=== PATIENT | female | born 1960 | race Caucasian/White ===

== ENCOUNTER 2018-03-31 08:49 | Day surgery (SDC) | payer OTHER ==
[~2018-03-31] VITALS: Ht 165.1 cm; Wt 85.3 kg
[~2018-03-31 08:49] MED LIST: CHANTIX1 MG PO; FOLIC ACID1 MG PO; HUMIRA40 MG/0.8 SUB-Q; LEVOTHYROXINE50 MCG PO; METHOTREXA25 MG/1 M3 INJ; PREDNISONE20 MG PO; TIZANIDINE HCL4 M1 PO; VENLAFAXINE HC150 MG PO; VITAMIN D-32000 UNIT PO
--- NOTE | 2018-03-31 11:35 | NUR ---
03/31/18 1135 Bianca Kaur 1130- PT ARRIVES TO PACU FROM ENDO ROOM ON 3 L VIA NC. PT TITRATED TO RA WITH SATS >90%. PT AWAKE AND ANSWERS QUESTIONS APPROPRIATELY. DENIES PAIN/NAUSEA. RESP EVEN AND UNLABORED. 1135 - VSS. PT SITTING UP IN BED AND DENIES PAIN/NAUSEA. PT ENC TO PAS S GAS AND IS ABLE TO DO SO. RA SATS 98%. RESP EVEN AND UNLABORED.
--- NOTE | 2018-04-02 14:13 | OR ---
[facility] [address] [place], [place] [address] Signed DATE OF OPERATION: 03/31/2018 SURGEON: Patrizia Damon MD PREOPERATIVE DIAGNOSES: 1. Epigastric pain and reflux symptoms. 2. Episodic diarrhea and constipation, prior history of tubular adenoma and hyperplastic polyp (2016). POSTOPERATIVE DIAGNOSES: 1. Distal esophagitis with ulceration. 2. Small flat polyp of distal esophagus. 3. Hiatal hernia. 4. Diminutive polyps of colon x2, otherwise normal. PROCEDURES: 1. Esophagogastroduodenoscopy with biopsy. 2. Total colonoscopy to cecum with cold morcellation polypectomy x2. ANESTHESIA: Intravenous sedation, fentanyl 150 mcg, and Versed 9 mg. INDICATION: This 57-year-old white woman is a patient of Mohsen Almodovar and has significant rheumatic disease, for which she takes Humira as well as methotrexate. She has clinical reflux symptoms which are rather significant, but takes no medication for that currently. Additionally, the patient is known to have colon polyps including a tubular adenoma and hyperplastic polyp in 2015, at which time she underwent colonoscopy and excision. She was admitted at this time to undergo upper endoscopy and colonoscopy. She understands the risks of bleeding, infection, and perforation. FINDINGS: On upper endoscopy, she had ulcerative distal esophagitis, but without stricture. There was also a small flat polyp in the distal 3rd of the esophagus, completely excised. The stomach itself looked reasonably normal. Pylorus was normal. Duodenum had no obvious findings. She did have a hiatal hernia upon retroflexed view. On colonoscopy, the prep was quite good. Complete colonoscopy was undertaken to the cecum and intubation of the ileum was accomplished as well. There was no sign of Electronically Signed By: PATRIZIA DAMON MD 04/02/18 1413 PATIENT NAME: LILLY TORRES OPERATIVE REPORT DATE OF : 58 REPORT #: [id number] PHYSICIAN: PATRIZIA DAMON MD PCP: MOHSEN ALMODOVAR DO REPORT IS CONFIDENTIAL AND NOT TO BE RELEASED WITHOUT AUTHORIZATION [facility] [address] [place], [place] [address] Signed colitis, but she did have 2 small polyps, both of diminutive and probably benign. There were no other findings of concern. DESCRIPTION OF PROCEDURE: The patient was brought to the endoscopy suite and given topical Hurricaine spray hypopharyngeal anesthesia and placed in lateral decubitus position. She was given intravenous sedation to the point of slurred speech and nystagmus. An Olympus video upper endoscope was passed by hypopharynx after placement of a bite block. Vocal cords appeared normal. Scope was advanced to the esophagus and distal esophagitis was noted. There was no stricture or neoplasm however. The scope was advanced to the stomach, which was insufflated with air. Rugal folds appeared normal. The antrum was reasonably normal as was the pylorus. The scope was passed into the duodenum without problem. The 3rd, 2nd, and bulbar portions were reasonably normal. Biopsies were taken of the duodenum to assess for occult celiac disease. The scope was withdrawn and biopsies taken of the antrum for both ED and pathologic testing. CLOtest was subsequently found to be negative at 1 hour's time. Retroflexed view of the GE junction showed a hiatal hernia. Scope was withdrawn to the distal esophagus where ulcerative esophagitis was noted. There is no clear evidence of Perales's epithelium proper however. Multiple biopsies were obtained. On withdrawal of scope in the distal one-third of the esophagus was a flat polyp. This was seen with narrow band imaging as slightly suspicious and therefore complete excision was undertaken with cold morcellation technique. The remaining esophagus was normal. Plans were then made for colonoscopy. The table was rotated and additional sedation given. Digital rectal examination performed and an Olympus video colonoscope passed in the rectum. The scope was manipulated throughout the colon ultimately intubating the cecum itself. The ileocecal valve appeared normal. Scope was easily passed into the terminal ileum. The ileum was normal. Scope was withdrawn and biopsies were not undertaken. With careful withdrawal of scope, there were no findings of concern until the sigmoid colon where a small hyperplastic appearing polyp was noted. This was excised with cold morcellation technique. Another similar such polyp was noted at the rectosigmoid also excised. Retroflexed view of the rectum was normal. Scope was removed and the patient was taken to recovery room in good condition. CONCLUDING DIAGNOSIS: Significant hiatal hernia with distal esophagitis, for which treatment is appropriate, particularly given her immunosuppression with Humira and methotrexate. I would recommend Prilosec 20 mg daily. As regards to colon, polyps were diminutive and of no real concern. Her bowel issues may be unrelated to a primary colonic pathology. She will follow up with me in 4-6 weeks and we will review her pathology reports and symptoms. Electronically Signed By: PATRIZIA DAMON MD 04/02/18 1413 PATIENT NAME: LILLY TORRES OPERATIVE REPORT DATE OF : 58 REPORT #: [id number] PHYSICIAN: PATRIZIA DAMON MD PCP: MOHSEN ALMODOVAR DO REPORT IS CONFIDENTIAL AND NOT TO BE RELEASED WITHOUT AUTHORIZATION [place] [address] Signed MD KIN Hoffman/MODL /[id number] cc: Mohsen Almodovar DO Copies: MOHSEN ALMODOVAR DO ~ Electronically Signed By: PATRIZIA DAMON MD 04/02/18 1413 PATIENT NAME: LILLY TORRES OPERATIVE REPORT DATE OF : 58 REPORT #: [id number] PHYSICIAN: PATRIZIA DAMON MD PCP: MOHSEN ALMODOVAR DO REPORT IS CONFIDENTIAL AND NOT TO BE RELEASED WITHOUT AUTHORIZATION
== END 2018-03-31 12:15 | disposition home or self-care (01) ==
LOC: OPS 08:49 → DS 08:49 → OPS 09:45 → DS 10:30 → OPS 12:15
PROVIDERS: Surgery
PROC: 0DB38ZX Excision of Lower Esophagus, Via Natural or Artificial Opening Endoscopic, Diagnostic (ICD-10-PCS; 2018-03-31)
PROC: 0DB58ZX Excision of Esophagus, Via Natural or Artificial Opening Endoscopic, Diagnostic (ICD-10-PCS; 2018-03-31)
PROC: 0DBN8ZZ Excision of Sigmoid Colon, Via Natural or Artificial Opening Endoscopic (ICD-10-PCS; 2018-03-31)
PROC: 0DB98ZX Excision of Duodenum, Via Natural or Artificial Opening Endoscopic, Diagnostic (ICD-10-PCS; principal; 2018-03-31 09:45)
PROC: 0DB78ZX Excision of Stomach, Pylorus, Via Natural or Artificial Opening Endoscopic, Diagnostic (ICD-10-PCS; 2018-03-31 09:45)
DX: K63.5 Polyp of colon (principal); K21.0 Gastro-esophageal reflux disease with esophagitis; K22.10 Ulcer of esophagus without bleeding; K22.8 Other specified diseases of esophagus; K44.9 Diaphragmatic hernia without obstruction or gangrene; M06.9 Rheumatoid arthritis, unspecified; M32.9 Systemic lupus erythematosus, unspecified; G47.30 Sleep apnea, unspecified; E03.9 Hypothyroidism, unspecified; J45.909 Unspecified asthma, uncomplicated; F32.9 Major depressive disorder, single episode, unspecified; Z88.8 Allergy status to other drugs, medicaments and biological substances; Z91.041 Radiographic dye allergy status; Z86.010 Personal history of colon polyps; Z87.891 Personal history of nicotine dependence; Z98.890 Other specified postprocedural states
CPT/HCPCS: 99153; G0500; J2250; J3010; J7120

== ENCOUNTER 2018-06-22 06:50 | Day surgery (SDC) | payer OTHER ==
[~2018-06-22] VITALS: Ht 165.1 cm; Wt 78.0 kg
--- NOTE | 2018-06-22 09:58 | NUR ---
06/22/18 0958 Vicky Dalton 0955 PT TO PACU SLEEPING ORAL AIRWAY IN PLACE O2 ON VIA MASK AT 7L.
[2018-06-22] MEDS ORDERED: IBUPROFEN600 MG PO (10:10)
[2018-06-22] MEDS ORDERED: OXYCODON-ACETA1 EAC2 PO (10:11)
[2018-06-22] MEDS ORDERED: TYLENOL325 MG PO (10:11)
--- NOTE | 2018-06-22 11:00 | NUR ---
PT RETURNS TO DS ROOM 3 ON RA. PT DROWSY BUT EASILY AROUSABLE. PT REPORTS TOLERABLE PAIN AND DENIES NAUSEA. 4 TROCH SITES WNL. SMALL AMOUNT OF DRAINAGE ON STERI-STRIPS. PT PROVIDED WITH ICE WATER. FAMILY AT BEDSIDE. PT REQUESTS PRESCRIPTION SO CAN FILL AT THIS TIME. PRESCRIPTION GIVEN TO . CALL LIGHT WITHIN REACH
--- NOTE | 2018-06-22 12:21 | NUR ---
1215: PATIENT REQUESTED SOMETHING FOR PAIN. VS CHECKED. GIVEN PUDDING TO START EATING. THEN MEDICATED FOR PAIN WITH 1 TAB OF PERCOCET. FAMILY AT BEDSIDE. CALL LIGHT WITHIN REACH.
--- NOTE | 2018-06-22 12:55 | NUR ---
VSS. PT MEETS DC CRITERIA. PT REQUESTS PAIN MEDICINE BEFORE LEAVING FOR 04/23 PAIN. TYLENOL GIVEN SEE EMAR. IV DC'D WNL.
--- NOTE | 2018-06-22 12:58 | NUR ---
PT UP TO BATHROOM TO VOID. TOLERATES AMBULATION. DENIES NAUSEA AND LIGHTHEADED NESS. PT REPORTS DECREASE IN PAIN LEVEL. PT VOIDS 400 ML CLEAR, YELLOW URINE W/OUT DIFFICULTY. PT BACK TO BED. MORE PUDDING AND WATER PROVIDED. CALLL IGHT WITHIN REACH
--- NOTE | 2018-06-22 13:08 | NUR ---
DC INSTRUCTIONS WITH PRECAUTIONS PROVIDED TO PT AND FAMILY. PT VERBALIZES UNDERSTANDING AND DENIES FURTHER QUESTIONS. PRESCRIPTION GIVEN TO EARLIER. PT TO REMAIN IN DS FOR 20 MIN FOLLOWING PAIN MEDICATION ADMINISTRATION. CALL LIGHT WITHIN REACH. FAMILY AT BEDSIDE.
--- NOTE | 2018-06-22 13:25 | NUR ---
PT REPORTS DECREASE IN PAIN LEVEL. SURGICAL SITES WNL. PT TRANSPORTED IN WHEELCHAIR TO VEHICLE DRIVEN BY . PT IN STABLE CONDITION
--- NOTE | 2018-06-23 06:50 | EKG ---
[facility] [address] [facility] [place], [place] [address] Signed Sinus bradycardia Otherwise normal ECG No previous ECGs available Confirmed by ALISE MUNOZ MD ([id number]) on 06/23/2018 6:50:21 AM Electronically Signed By: ALISE MUNOZ MD 06/23/18 0650 PATIENT NAME: LILLY TORRES Electrocardiogram DATE OF : 58 PHYSICIAN: ALISE MUNOZ MD REPORT #: [id number] REPORT IS CONFIDENTIAL AND NOT TO BE RELEASED WITHOUT AUTHORIZATION
--- NOTE | 2018-06-23 09:42 | OR ---
[facility] [address] [place], [place] [address] Signed DATE OF OPERATION: 06/22/2018 SURGEON: Patrizia Damon MD DATE OF PROCEDURE: 06/22/2018 PREOPERATIVE DIAGNOSIS: Chronic acalculous cholecystitis. POSTOPERATIVE DIAGNOSIS: Chronic acalculous cholecystitis. PROCEDURES PERFORMED: 1. Laparoscopic cholecystectomy with intraoperative cholangiogram. 2. Surgeon-directed fluoroscopy. ANESTHESIA: General endotracheal, Laura Canela CRNA, and local 10 mL of 0.25% Marcaine with epinephrine. INDICATION: This 57-year-old white woman is a patient of Dr. Almodovar. She has been evaluated by upper endoscopy and colonoscopy in March of 2018. She did have significant ulcerative esophagitis on upper endoscopy and has been appropriately treated with PPI medication. No symptoms of largely resolved. Colonoscopy was normal. She has had persistent right upper abdominal pain and a gallbladder ultrasound was performed on June 06, 2018 showing gallbladder sludge, but no sign of large stones or anything of that sort. Close review of her symptoms suggest her problem likely currently is related to chronic cholecystitis. Her symptoms are rather typical occurring after meals including right subcostal pain and radiation to the subscapular area. Given the sludge it was identified, a CCK-HIDA test was deemed inadvisable. She is here today to undergo cholecystectomy preferred by laparoscopic approach. The risks of bleeding, infection, bile duct injury, need for open procedure, and so forth were all reviewed. She understands and wished to proceed. Additionally, the patient is noted to have "anaphylaxis" with intravenous iodine contrast. The patient was treated with hydrocortisone and Benadryl anticipating a dilute brief intraoperative cholangiogram. FINDINGS: Electronically Signed By: PATRIZIA DAMON MD 06/23/18 0942 PATIENT NAME: LILLY TORRES OPERATIVE REPORT DATE OF : 58 REPORT #: [id number] PHYSICIAN: PATRIZIA DAMON MD PCP: MOHSEN ALMODOVAR DO REPORT IS CONFIDENTIAL AND NOT TO BE RELEASED WITHOUT AUTHORIZATION [facility] [address] [place], [place] [address] Signed The gallbladder was chronically inflamed. The liver was normal. There were no other findings of concern. The gallbladder once opened showed chronic inflammatory change of the mucosa. There was no sign of stones. Cholangiogram was normal. She tolerated the procedure well. DESCRIPTION OF PROCEDURE: The patient was brought to the operating room, given a general endotracheal anesthetic. Preoperative antibiotic Ancef was given. Sequential compression device stockings applied and heparin subcutaneously administered. Additionally, she was given hydrocortisone 100 mg IV as well as Benadryl 25 mg IV. The abdomen was prepared with a chlorhexidine solution and draped sterilely. An infraumbilical incision was made and using an open Brandie cannula technique, pneumoperitoneum was achieved to a level of 14 mmHg of carbon dioxide gas. Intraabdominal inspection showed no sign of ascites or carcinomatosis. Three additional trocars were placed in usual configuration in the subxiphoid, right midclavicular, and right anterior axillary line. The gallbladder was elevated cephalad, examined and looked to be chronically inflamed. The gallbladder was retracted laterally and using blunt and electrocautery dissection, the triangle of Calot was dissected free ultimately identifying well the cystic duct. A clip was applied across gallbladder cystic duct junction and a transverse choledochotomy made in the cystic duct. Egress of clear bile was noted. Using the Garza type cholangiocatheter, intraoperative cholangiography was undertaken with surgeon-directed fluoroscopy. Free flow of contrast was noted into the biliary tree with prompt emptying into the duodenum. A dilute solution was used and less than 2 mL were used in aggregate probably. The catheter was removed. The cystic duct was triply clipped and divided. The gallbladder dissected free in a retrograde fashion using electrocautery. The gallbladder was extracted through the infraumbilical port site without problem, opened on the back table and found to have chronic inflammatory change in the mucosa. No stones and no sign of neoplasm. Irrigation was undertaken in subhepatic space. Hemostasis was assured with electrocautery. Excess irrigation fluid was suctioned free. The trocars were removed under direct visualization. The infraumbilical fascial incision was reapproximated with interrupted 0 Vicryl suture. All wounds were copiously irrigated with saline solution. Skin closed with interrupted 3-0 Vicryl. Steri-Strips were applied. The patient was ultimately extubated and transferred to recovery room in good condition having suffered no complication. Sponge, needle, and instrument counts reported as correct x3. Patrizia Damon MD Electronically Signed By: PATRIZIA DAMON MD 06/23/18 0942 PATIENT NAME: LILLY TORRES OPERATIVE REPORT DATE OF : 58 REPORT #: [id number] PHYSICIAN: PATRIZIA DAMON MD PCP: MOHSEN ALMODOVAR DO REPORT IS CONFIDENTIAL AND NOT TO BE RELEASED WITHOUT AUTHORIZATION [address] [address] Signed /[facility] /[id number] cc: Mohsen Almodovar DO Copies: MOHSEN ALMODOVAR DO ~ Electronically Signed By: PATRIZIA DAMON MD 06/23/18 0942 PATIENT NAME: LILLY TORRES OPERATIVE REPORT DATE OF : 58 REPORT #: [id number] PHYSICIAN: PATRIZIA DAMON MD PCP: MOHSEN ALMODOVAR DO REPORT IS CONFIDENTIAL AND NOT TO BE RELEASED WITHOUT AUTHORIZATION
== END 2018-06-22 13:25 | disposition home or self-care (01) ==
LOC: DS 06:50
PROVIDERS: Surgery
PROC: BF13YZZ Fluoroscopy of Gallbladder and Bile Ducts using Other Contrast (ICD-10-PCS; 2018-06-22)
PROC: 0FT44ZZ Resection of Gallbladder, Percutaneous Endoscopic Approach (ICD-10-PCS; principal; 2018-06-22 08:15)
DX: K81.1 Chronic cholecystitis (principal); K21.9 Gastro-esophageal reflux disease without esophagitis; M19.90 Unspecified osteoarthritis, unspecified site; J45.909 Unspecified asthma, uncomplicated; E03.9 Hypothyroidism, unspecified; G47.30 Sleep apnea, unspecified; M32.9 Systemic lupus erythematosus, unspecified; F32.9 Major depressive disorder, single episode, unspecified; K22.10 Ulcer of esophagus without bleeding; K83.8 Other specified diseases of biliary tract; M06.9 Rheumatoid arthritis, unspecified; K21.0 Gastro-esophageal reflux disease with esophagitis; J18.9 Pneumonia, unspecified organism; I73.00 Raynaud's syndrome without gangrene; Z91.041 Radiographic dye allergy status; Z87.891 Personal history of nicotine dependence
CPT/HCPCS: 00790; 74300; 93005; 93010; J0131; J0330; J0690; J1100; J1200; J1644; J1720; J2250; J2405; J2704; J3010; J7120; Q9967

== ENCOUNTER 2018-12-22 19:31 | Observation (INO) | payer OTHER ==
[~2018-12-22] VITALS: Ht 165.1 cm; Wt 78.0 kg
[~2018-12-22 19:31] MED LIST changes: +IBUPROFEN600 MG PO; +OXYCODON-ACETA1 EAC2 PO; +TYLENOL325 MG PO
[2018-12-22] MEDS ORDERED: LYRICA50 MG PO (19:51)
[2018-12-22] MEDS ORDERED: CITALOPRAM HBR10 MG PO (19:52)
[2018-12-22] MEDS ORDERED: LEUCOVORIN CALCI5 MG PO (23:57)
[2018-12-22] MEDS ORDERED: OMEPRAZOLE20 MG PO (23:59)
--- NOTE | 2018-12-23 00:28 | NUR ---
SBA PT TO BR AND BK TO BED
--- NOTE | 2018-12-23 00:45 | NUR ---
PT UP TO USE THE BATHROOM WITH SENIOR SOFTWARE QA ENGINEER ASSIST AND FWW. PT REQUESTING PRN PAIN MEDICATION AFTER RETURNING TO BED. PT RATES PAIN 7/10 TO RLQ. PRN DILAUDID ADMINSITERED, EDUCATION REGARDING SIDE EFFECTS AND MEDICATION AVAILABILITY DISCUSSED. PT STATES UNDERSTANDING. PT DENIES FURTHER NEEDS AT THIS TIME. PT'S MOM REMAINS AT BEDSIDE. CALL LIGHT IN REACH.
--- NOTE | 2018-12-23 03:55 | NUR ---
PT UTILIZES CALL LIGHT, REQUESTS PRN PAIN MEDCIATION. RATES PAIN 7/10. PT STATES THAT SHE JUST PASSED A LARGE AMOUNT OF FLATUS WHICH HAS INCREASED HER PAIN. PT UP TO THE BATHROOM AND BACK TO BED WITH 1PA AND FWW. PT TOLERATED WELL. PT ASSESSMENT COMPLETE. BT'S ACTIVE. ABD TENDER TO PALPATION. PT DENIES FURTHER NEEDS AT THIS TIME. PT'S MOM SLEEPING AT BEDSIDE. CALL LIGHT IN REACH.
--- NOTE | 2018-12-23 07:22 | NUR ---
PATIENT GIVEN 0.5MG IV DILUADID FOR RLQ PAIN OF 5/10.
--- NOTE | 2018-12-23 07:40 | NUR ---
0733: BEDSIDE REPORT RECIEVED FROM ERA SANABRIA. PT RESTING IN HER BED AND STATES HER PAIN IS A BIT "BETTER" AFTER HER LAST DOSE OF PAIN MEDICATIONS. PT DENIES ANY OTHER PROBLEMS AT THIS TIME. CALL LIGHT WITHIN REACH.
--- NOTE | 2018-12-23 08:23 | NUR ---
PT RESTING IN HER BED WITH NO COMPLAINTS OTHER THAN HER ABD PAIN AT A 4-5 WHICH SHE STATES IS ACCEPTABLE TO HER AT THIS TIME. PT REMAINS NPO, IV INFUSING ORDERED. CALL GUTIERREZ WITHIN REACH.
--- NOTE | 2018-12-23 09:50 | NUR ---
PRE-OP EKG DONE, PATIENT DOING PRE-OP WIPES
--- NOTE | 2018-12-23 10:02 | NUR ---
PATIENT TO SURGERY WITH KUSH SANABRIA
--- NOTE | 2018-12-23 10:07 | NUR ---
PT TO OR AT 1145.
--- NOTE | 2018-12-23 11:48 | NUR ---
12/23/18 Jessica Valdes OXYGEN SATURATION REMAINS 100% ON 6L VIA MASK. OXYGEN IS REMOVED AT THIS TIME. PATIENT LIFTS HER HEAD OFF THE PILLOW AND SURGICAL BONNET IS REMOVED.
--- NOTE | 2018-12-23 12:46 | EKG ---
[facility] [address] [facility] [place], [place] [address] Signed Normal sinus rhythm Nonspecific T wave abnormality Abnormal ECG When compared with ECG of 22-JUN-2018 07:40, No significant change was found Confirmed by ALISE MUNOZ MD ([id number]) on 12/23/2018 12:46:00 PM Electronically Signed By: ALISE MUNOZ MD 12/23/18 1246 PATIENT NAME: LILLY TORRES Electrocardiogram DATE OF : 58 PHYSICIAN: ALISE MUNOZ MD REPORT #: [id number] REPORT IS CONFIDENTIAL AND NOT TO BE RELEASED WITHOUT AUTHORIZATION
--- NOTE | 2018-12-23 12:49 | NUR ---
PATIENT ARRIVES TO UNIT VIA HOSPITAL BED. REPORT RECEIVED FROM ELECTRICAL TIMING DEVICE CALIBRATOR. ABDOMINAL LAP SITES ARE CLEAN, DRY, AND INTACT. HYPOACTIVE BOWEL TONES. SPO2 OF 95% ON 2LNC. PATIENT REPORTS PAIN OF 2/10, WHICH IS TOLERABLE. PATIENT ORIENTED TO ROOM, COFFEE BROUGHT IN. PLAN OF CARE FOR THE DAY IS DISCUSSED. NO FURTHER NEEDS AT THIS TIME, CALL LIGHT WITHIN REACH.
--- NOTE | 2018-12-23 14:25 | NUR ---
PATIENT SITTING UP IN BED WATCHING TV. DENIES NAUSEA, HAS NOT PASSED GAS. ABDOMINAL LAP SITES ARE CLEAN, DRY, AND INTACT. BOWEL TONES HYPOACTIVE. PATIENT REPORTS PAIN OF 3/10 AFTER AMBULATING TO THE TOILET. COFFEE PROVIDED. DENIES FURTHER NEEDS AT THIS TIME, CALL LIGHT WITHIN REACH.
--- NOTE | 2018-12-23 15:22 | NUR ---
PATIENT GIVEN 1 NORCO FOR 4/10 ABD PAIN, ICE PACK GIVEN, LAST POST OP VITALS DONE.
--- NOTE | 2018-12-23 15:45 | NUR ---
DR. WALLACE NOTIFIED OF PATIENT REQUEST TO NOT TAKE IBUPROFEN DUE TO HOME MEDICATIONS. NEW ORDERS RECEIVED FOR PRN ACETAMINOPHEN.
--- NOTE | 2018-12-23 19:20 | NUR ---
BEDSIDE REPORT RECEIVED FROM OFFGOING RN'S AVERY. PT ABLE TO PARTICIPATE IN REPORT. DENIES NEEDS AT THIS TIME. CALL LIGHT WITHIN REACH. PT'S MOM PRESENT AT BEDSIDE WITH PT.
--- NOTE | 2018-12-23 21:50 | NUR ---
PT ASSESSMENT COMPLETE. PT RATES PAIN 5/10 TO RLQ. PRN NORCO X 2 TABS ADMINISTERED. PT DENIES NAUSEA OR SOB AT THIS TIME. BT'S ACTIVE. ABD TENDER TO PALPATION. PT REPORTS PASSING FLATUS, REPORTS THAT THIS HELPS ALLEVIATE SOME PAIN. LAP SITES X3, UMBILICAL LAP SITE AND LAP SITE BELOW UMBILICUS WITH SMALL AMOUNT OF RED SHADOWING TO GAUZE. PT DENIES FURTHER NEEDS AT THIS TIME. CALL LIGHT IN REACH.
--- NOTE | 2018-12-23 22:03 | OR ---
[facility] [address] [place], [place] [address] Signed DATE OF OPERATION: 12/23/2018 SURGEON: Lupe Wallace MD PREOPERATIVE DIAGNOSES: 1. Appendicitis. 2. Immunocompromised patient. POSTOPERATIVE DIAGNOSES: 1. Inflamed appendicitis. 2. Immunocompromised patient. PROCEDURE PERFORMED: Laparoscopic appendectomy. ESTIMATED BLOOD LOSS: None. INDICATIONS: Lilly is a 58-year-old female, who happens to have lupus, rheumatoid arthritis, and fibromyalgia requiring Humira and methotrexate. She has had some generalized abdominal pain actually for several months. However, she developed generalized abdominal pain that seemed to be localized to the right lower quadrant. Her went through a rather significant appendicitis number of years ago. He had been in the hospital for 9 days requiring an open incision. Obviously, they were quite concerned, so they came to the emergency room for evaluation. Her vital signs were stable, but she certainly was tender in the right lower quadrant. White count is not necessarily dependable given her medications. She came with a white count of 6.5 and this morning it was 4.4 with neutrophils of 70 that dropped to 59. Her platelet count runs a little bit on the low side at 123. She also has some chronic anemia. Liver function tests were fine. Albumin is good at 4.0. Urinalysis was negative. The CT scan showed what looked like a thickened appendiceal tip and maybe some mild periappendiceal inflammation. Consequently, I have been called in the middle of night and asked her to admit her as a general surgeon on-call. When I met Lilly this morning, she was clearly tender in the right lower quadrant, somewhat laterally exactly over the area of her appendix consistent with the CT scan. I reviewed this with Lilly and her in detail. We had reviewed laparoscopic versus open appendectomy. We did review the risks including, but not limited to bleeding, infection, scarring, change in contour of the skin, damage to bowel, appendiceal stump leak, postoperative intraabdominal abscess, incisional hernias, and other unforeseen comorbidities. We all agreed it was prudent to Electronically Signed By: LUPE WALLACE MD 12/23/18 2203 PATIENT NAME: LILLY TORRES OPERATIVE REPORT DATE OF : 58 REPORT #: [id number] PHYSICIAN: LUPE WALLACE MD PCP: MANI ALMODOVAR DO REPORT IS CONFIDENTIAL AND NOT TO BE RELEASED WITHOUT AUTHORIZATION [facility] [address] [place] [id number] Signed proceed with a laparoscopic appendectomy for Lilly. She had expressed understanding and wished to proceed. PROCEDURE NOTE: Lilly was taken in the operating room and placed in the supine position under general endotracheal tube anesthesia. She was given preoperative antibiotics along with subcutaneous heparin. SCDs were utilized. She was then prepped and draped in the usual sterile fashion. A Rea catheter had been inserted with return of clear yellow urine without difficulty. Her trocars were placed in her usual positions under direct visualization of camera without difficulty. We took multiple pictures for photodocumentation. We could see the right ovary and it looked fine. We elevated the small bowel off the appendix and sure enough she had a thickened inflamed appendix. After this, the base of the appendix was divided from the cecum with help of a linear stapler. The mesoappendix was also divided with the stapler. Gentle cautery was used for hemostasis along each staple line. The appendix was then placed into an EndoCatch bag. We did see some reactive fluid around the cecum and it was irrigated and suctioned out. The appendix was removed through the right subcostal trocar site. We used our laparoscopic suturing device to pass 2-0 Vicryl sutures through the fascia of the right subcostal trocar site. This was tied down to close this fascia primarily. After this, all the gas was allowed to escape and all the remaining trocars were removed. We closed the fascia of the supraumbilical trocar site with interrupted [id number] and simple 0 Vicryl sutures. Local anesthetic was injected into all trocar sites. Each trocar site was irrigated and suctioned out until clear. The skin and dermis of each trocar site were closed with interrupted 3-0 subcuticular Monocryl sutures. Dry gauze and tape were then applied to all incisions. Lilly Rea catheter was then removed without difficulty. She was awakened from anesthesia, extubated in the OR, and taken to recovery room in stable condition. Lupe Wallace MD ALB/MODL /[id number] cc: DO Luna Evans MD Electronically Signed By: LPUE WALLACE MD 12/23/18 2203 PATIENT NAME: LILLY TORRES OPERATIVE REPORT DATE OF : 58 REPORT #: [id number] PHYSICIAN: LUPE WALLACE MD PCP: MANI ALMODOVAR DO REPORT IS CONFIDENTIAL AND NOT TO BE RELEASED WITHOUT AUTHORIZATION [facility] [address] [place] [address] Signed Lupe Wallace MD Copies: MANI ALMODOVAR LESLIE MD BOWER, ANDREW L MD ~ Electronically Signed By: LUPE WALLACE MD 12/23/18 2203 PATIENT NAME: LILLY TORRES OPERATIVE REPORT DATE OF : 58 REPORT #: [id number] PHYSICIAN: LUPE WALLACE MD PCP: MANI ALMODOVAR DO REPORT IS CONFIDENTIAL AND NOT TO BE RELEASED WITHOUT AUTHORIZATION
--- NOTE | 2018-12-23 22:03 | CONS ---
[facility] [address], [place] [address] Signed DATE OF CONSULTATION: 12/23/2018 CHIEF COMPLAINT: Right lower quadrant abdominal pain. HISTORY OF PRESENT ILLNESS: Lilly is a 58-year-old female with a history of lupus, rheumatoid arthritis and fibromyalgia on methotrexate and Humira. She has had some trouble with generalized abdominal pain probably the last 6 months. She was started on Lyrica and it caused constipation, seemed to make things worse. She finally had some gas and bowel movement and abdominal distention resolved. However, she noticed that she had persistent pain in the right lower quadrant. Her had been through rather significant an open appendectomy previously. Consequently, they brought her to the emergency room for evaluation. In the emergency room, she was tender in the right lower quadrant with a normal white count. The CT scan showed possible thickening and periappendiceal inflammation near the tip of the appendix. I was asked to admit her as a general surgeon aqua ammonia operator last night. Overnight she has done fine, although the pain has persisted. PAST MEDICAL HISTORY: Depression, hypothyroidism, lupus, rheumatoid arthritis and fibromyalgia. PAST SURGICAL HISTORY: A laparoscopic cholecystectomy, partial hysterectomy, upper endoscopy with foreign body removal, x2. SOCIAL HISTORY: She quit smoking. She does not drink. She is to her at [phone]. 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 They prefer the [facility], Dr. Mohsen Almodovar is her primary care provider, Dr. Luna Clifton is her Intelligence Consultant over in [place], [place]. She has three children. FAMILY HISTORY: Dad of testicular cancer. REVIEW OF SYSTEMS: She had 10 systems reviewed and we talked mainly about her lupus and rheumatoid arthritis. ALLERGIES: Iodine and bupropion. Electronically Signed By: LUPE WALLACE MD 12/23/18 2207 PATIENT NAME: LILLY TORRES CONSULTATION DATE OF : 58 REPORT #: [id number] PHYSICIAN: LUPE WALLACE MD PCP: MOHSEN ALMODOVAR DO REPORT IS CONFIDENTIAL AND NOT TO BE RELEASED WITHOUT AUTHORIZATION [facility] [address], [place] [address] Signed MEDICATIONS: Lyrica, ibuprofen, Tylenol, levothyroxine, folate, vitamin D, citalopram, Humira, and methotrexate. PHYSICAL EXAMINATION: VITAL SIGNS: Her blood pressure is 91/45, heart rate 66, respiratory rate 16, temperature is 99.1. She is 91-98 percent on room air. She is 5 feet 5 inches and 78 kg. GENERAL: Lilly is a 58-year-old female, lying supine in her hospital bed. She does not appear systemically ill or toxic. As always, she is a good historian. LUNGS: Clear to auscultation bilaterally. HEART: Regular rate and rhythm. ABDOMEN: Obese, but soft. She is tender in the right lower quadrant and somewhat laterally.. LABORATORY DATA: Her white blood count is 4.4 with neutrophils of 59. Her hemoglobin is 11.6 with a mean cell volume of 100, platelets are 123. BUN 15, creatinine 0.97. Liver function tests are negative. Albumin is 4.0, lipase 25. Urinalysis is negative. RADIOGRAPHIC STUDIES: The CT scan report and images are reviewed. There was concern about 1.1 cm appendiceal tip with some mild periappendiceal inflammation at the tip concerning for possible early appendicitis. ASSESSMENT AND PLAN: Lilly is a 58-year-old female, who presents with very well may be early appendicitis. She is immunocompromised as stated above. I think the Lyrica and constipation are separate issue. In addition, this could be viral given her white blood cell count. Nevertheless, I think it is nova given her immunocompromised state and ongoing need for her Humira and methotrexate to go ahead and remove her appendix. She has already been through a laparoscopic cholecystectomy and she is familiar with that process. Her went through a laparoscopic, converted to an open appendectomy with myself in the last few years. They are very familiar with this whole process. They understand there is risk including, but not limited to bleeding, infection, scarring, change in contour of the skin, damage to bowel, appendiceal stump leak, postoperative intraabdominal abscess, incisional hernias and other unforeseen comorbidities. They have expressed understanding and wished to proceed. Lupe Wallace MD Electronically Signed By: LUPE WALLACE MD 12/23/18 9686 PATIENT NAME: LILLY TORRES CONSULTATION DATE OF : 58 REPORT #: [id number] PHYSICIAN: LUPE WALLACE MD PCP: MOHSEN ALMODOVAR DO REPORT IS CONFIDENTIAL AND NOT TO BE RELEASED WITHOUT AUTHORIZATION [address] [address] Signed ALB/MODL /[id number] cc: MD Luna Ortega MD Arian Kargar, DO Copies: LUPE WALLACE MD, LESLIE MD KARGAR, ARIAN DO ~ Electronically Signed By: LUPE WALLACE MD 12/23/18 2203 PATIENT NAME: LILLY TORRES CONSULTATION DATE OF : 58 REPORT #: [id number] PHYSICIAN: LUPE WALLACE MD PCP: MOHSEN ALMODOVAR DO REPORT IS CONFIDENTIAL AND NOT TO BE RELEASED WITHOUT AUTHORIZATION
--- NOTE | 2018-12-23 23:45 | NUR ---
BROODMARE FOREMAN TO ROOM FOR IV ALARMING. PT REPORTS THAT HAT IN TOILET NEEDS EMPTIED. BROODMARE FOREMAN INQUIRES HOW PT GOT UP. SHE STATES WITH HER MOTHER'S HELP. PT'S MOTHER IS ELDERLY AND WALKS WITH A CANE. PT ADVISED THAT THIS IS NOT A SAFE OPTION, THAT PT SHOULD CALL FOR ASSISTANCE. PT'S MOM STATES "BUT SHE HAS URINARY URGENCY". PT AND HER MOTHER ADVISED THAT REGARDLESS OF URINARY URGENCY, PT NEEDS TO CALL STAFF FOR ASSISTANCE OR WE WOULD HAVE OT PLACE THE BED ALARM. PT AND HER MOTHER STATE UNDERSTANDING. DENY FURTHER NEEDS AT THIS TIME. CALL LIGHT WITHIN REACH.
--- NOTE | 2018-12-24 02:15 | NUR ---
SBA PT TO TOILET, BK TO BED
--- NOTE | 2018-12-24 02:35 | NUR ---
DIRECTOR MARKETING INFORMS THIS AGRICULTURAL EQUIPMENT SALES MANAGER THAT PT WOULD LIKE PRN PAIN MEDICATION. PT MEDICATED WITH PRN NORCO BY POOL TABLE MECHANIC.
--- NOTE | 2018-12-24 05:52 | NUR ---
SBA PT TO TOILET AND BK TO BED
--- NOTE | 2018-12-24 06:01 | NUR ---
ROOF SLATER TO ROOM FOR SCHEDULED MEDCIATION ADMINISTRATION. PT WAKES EASILY. PT STATES THAT PAIN IS WELL CONTROLLED AFTER RECENT DOSE OF PRN PAIN MEDCIATION. PT DENIES NAUSEA OR SOB. PT ASSESSMENT COMPLETE. BT'S ACTIVE, ABD TENDER TO PALPATION, SPECIFICALLY RLQ PER PT. LAP SITES X 3 WITH GAUZE AND SILK TAPE. SMALL AMOUNT OF RED SHADOWING TO EACH. ICE WATER REFILLED, VITAL SIGNS TAKEN. PT UP TO BATHROOM WITH HEAD BELLHOP CAPTAIN ASSISTANCE. DENIES FURTHER NEEDS FROM THIS ROOF SLATER. CALL LIGHT IN REACH.
--- NOTE | 2018-12-24 06:57 | NUR ---
VITALS/I&Os DONE, SBA TO BSC, BK TO BED
--- NOTE | 2018-12-24 07:13 | NUR ---
PATIENT SITTING UP IN BED WITH MOTHER AT BEDSIDE. REPORTS PAIN OF 5/10, PRN PAIN MEDICATION PROVIDED. WATER REFRESHED. PATIENTS CHEEKS ARE FLUSHED AND REPORTS FEELING "HOT," TEMP IS TAKEN OF 98.1 DEGREES. D5LR RUNNING AT 100 MLS/HR. IV SITE BENIGN. NO FURTHER NEEDS AT THIS TIME, CALL LIGHT WITHIN REACH.
--- NOTE | 2018-12-24 08:57 | NUR ---
PATIENT SITTING UP AT EDGE OF BED WITH FEET ON FLOOR. MOTHER AT BEDSIDE. D5LR INFUSING AT 100 MLS/HR. AM MEDICATIONS GIVEN, TOLERATED WELL. ASSESSMENT COMPLETE. ACTIVE BOWEL TONES, NO TENDERNESS ON PALPATION. SHADOWING PRESENT ON ABDOMINAL LAP SITE NEAR UMBILICUS AND RIGHT ABDOMINAL LAP SITE. INGUINAL LAP SITE IS CLEAN, DRY, AND INTACT. WATER REFRESHED, DENIES FURTHER NEEDS AT THIS TIME. CALL LIGHT WITHIN REACH.
--- NOTE | 2018-12-24 10:32 | NUR ---
PATIENT AMBULATING HALLWAYS WITH . IV FLUIDS CONTINUING TO INFUSE. DENIES PAIN OR NAUSEA WITH AMBULATION.
--- NOTE | 2018-12-24 10:55 | NUR ---
NEW BAG OF D5LR HUNG, RATE CHANGE TO 50 MLS/HR. CITALOPRAM DOSE CHANGED TO MORNINGS, DOSE GIVEN. PATIENT AMBULATED TO TOILET WITH 1 PERSON SBA, VOIDING WELL. RETURNED TO BED, WATER REFRESHED. NO FURTHER NEEDS AT THIS TIME, CALL LIGHT WITHIN REACH.
--- NOTE | 2018-12-24 12:43 | NUR ---
PATIENT SITTING UP IN BED WATCHING TV. IN ROOM. ATE 100% OF LUNCH, DENIES PAIN OR NAUSEA AFTER EATING. VOID OF 325 MLS. NO FURTHER NEEDS AT THIS TIME, CALL LIGHT WITHIN REACH.
--- NOTE | 2018-12-24 14:32 | NUR ---
PATIENT SITTING UP IN BED. IV FLUIDS RUNNING AT 50 MLS/HR. ASSESSMENT COMPLETE. BOWEL TONES ACTIVE, INCISIONS ARE WELL APPROXIMATED WITH NO DRAINAGE. PATIENT DENIES PAIN, NO FURTHER NEEDS AT THIS TIME, CALL LIGHT WITHIN REACH.
--- NOTE | 2018-12-24 16:15 | NUR ---
PATIENT REPORTS PAIN OF 4/10, PRN PAIN MEDICATION GIVEN. D5LR CONTINUES RUNNING AT 50 MLS/HR. PATIENT SITTING UP IN BED, DENIES ANY FURTHER NEEDS AT THIS TIME. CALL LIGHT WITHIN REACH.
--- NOTE | 2018-12-24 19:20 | NUR ---
REPORT RECEIVED FROM DANIELE DOMINGUEZ. pt RESTING IN BED. REPORTED PAIN "IT'S OKAY RIGHT NOW." LAP SITES OBSERVED, EDGES APPROXIMATED. NO REQUESTS AT THIS TIME. MOTHER, JOSE, AT BEDSIDE. CALL LIGHT WITHIN REACH.
--- NOTE | 2018-12-24 20:47 | NUR ---
DR WALLACE CALLED. OKAY TO LEAVE IV OUT.
--- NOTE | 2018-12-24 20:47 | NUR ---
PT COMPLAINED OF IV HURTING, FOUND TO BE INFILTRATED. ORDER TO DC RECEIVED. IV DC'D
--- NOTE | 2018-12-24 22:00 | NUR ---
ASSESSMENT DONE. LAP SITES X3, EDGES APPROXIMATED. VITALS AND I&O RECORDED. PRN PAIN MED GIVEN (SEE MAR). NO FURTHER REQUESTS AT THIS TIME. CALL LIGHT WITHIN REACH.
--- NOTE | 2018-12-25 00:27 | NUR ---
PT APPEARS TO BE SLEEPING, RESP EVEN AND NON LABORED. NO DISTRESS NOTED. PERSONAL SUPPLIES AND CALL LIGHT WITHIN REACH.
--- NOTE | 2018-12-25 02:59 | NUR ---
TWO TABS OF [place] ADMIN FOR REPORTS OF 6/10 ABD PAIN.
--- NOTE | 2018-12-25 07:27 | NUR ---
RECIEVED BEDSIDE REPORT FROM DANIELE REESE. PT IS AWAKE AND ALERT, DRESSED AND READY FOR DISCHARGE. DR WALLACE HAS WRITTEN DC ORDERS FOR AFTER BREAKFAST. SHE HAS BREAKFAST ORDERED.
[2018-12-25] MEDS ORDERED: NORCO 5-325 TA1 EACH PO (08:11)
--- NOTE | 2018-12-25 09:49 | NUR ---
PT DISCHARGED HOME WITH MOTHER. RN WALKED PT OUT IN WHEELCHAIR. DISCHARGE TEACHING COMPLETE. DISCUSSED FOLLOW UP, MEDICATIONS, WHEN TO TO CALL THE DOCTOR, ACTIVITY. PT VERBALIZED UNDERSTANDING. PT REQUESTED ONE NORCO TABLET PRIOR TO DISCHARGE.
--- NOTE | 2018-12-26 05:18 | DS ---
[facility] [address], [place] [address] Signed ADMISSION DATE: 12/22/2018 DISCHARGE DATE: 12/25/2018 FINAL DIAGNOSIS: Acute inflamed appendicitis. PROCEDURE: Laparoscopic appendectomy. HISTORY OF PRESENT ILLNESS: Lilly is a 58-year-old female with a known history of lupus, rheumatoid arthritis and fibromyalgia, requiring Humira and methotrexate. She has had various abdominal pains for six months. However, she developed right lower quadrant abdominal pain the day prior to admission. She came to emergency room for evaluation. White count was normal on her immunosuppressive medications. However, she was mildly tender in the right lower quadrant. A CT scan showed what might be some thickening and periappendiceal inflammation. Consequently, I was asked to admit her as a general surgeon on-call. HOSPITAL COURSE: Lilly was admitted as above, started on antibiotics. We took her to surgery that same day and sure enough she had an inflamed and thickened early appendicitis. She underwent uncomplicated laparoscopic appendectomy. The intra and postop course had been uncomplicated. At this point, she is doing quite well with her full liquid diet. She is ambulating and getting around nicely. All incisions are healing well. There are no local signs or symptoms of infection. She is using a little narcotics for the incisional pain. Due to her progressing, we are going to be discharging her to home. DISCHARGE PLANS AND MEDICATIONS: Lilly will be discharged to home with a prescription for [place] 5/325 1-2 tablets p.o. q.6 hours p.r.n. for severe postoperative pain. We will dispense 30 tablets with no refills. Otherwise, she can use Tylenol, ibuprofen or naproxen as needed for nahl-js-udoylobx postoperative pain. She can purchase that vamm-cxm-wbwyzvk. She can resume all her chronic medications as we have here in the hospital including the Humira and the methotrexate. She can purchase an enym-fnu-bnytefo laxative such as Dulcolax or MiraLAX as needed for constipation. She will follow a regular diet. She is not to do any heavy pushing, pulling, or lifting over 20 pounds. She is not to return to work until I see her in the office in 7 to 10 days for re-evaluation. She has expressed understanding and agrees above plan. Electronically Signed By: LUPE WALLACE MD 12/26/18 0518 PATIENT NAME: LILLY TORRES DISCHARGE SUMMARY DATE OF : 58 REPORT #: [id number] PHYSICIAN: LUPE WALLACE MD PCP: MANI ALMODOVAR DO REPORT IS CONFIDENTIAL AND NOT TO BE RELEASED WITHOUT AUTHORIZATION [facility] [address] [place] [id number] Signed MD JIM Ortega/IFRAH /[id number] cc: MD Lupe Madsen MD Arian Kargar, DO Copies: BRIANA ARAUJO MD, ANDREW L MD KARGAR, ARIAN DO ~ Electronically Signed By: LUPE WALLACE MD 12/26/18 0518 PATIENT NAME: LILLY TORRES DISCHARGE SUMMARY DATE OF : 58 REPORT #: [id number] PHYSICIAN: LUPE WALLACE MD PCP: MANI ALMODOVAR DO REPORT IS CONFIDENTIAL AND NOT TO BE RELEASED WITHOUT AUTHORIZATION
--- NOTE | 2018-12-26 15:14 | PATH ---
[facility] [address], [place] [address] Signed SPECIMEN(S): A APPENDIX SPECIMEN SOURCE: A. APPENDIX CLINICAL HISTORY: RUQ pain, lupus, RA, fibromyalgia, appendicitis, immunocompromised. FINAL PATHOLOGIC DIAGNOSIS: Appendix, appendectomy: - Acute appendicitis. NAL:cml:C2NR MICROSCOPIC EXAMINATION: Histologic sections of all submitted blocks are examined by light microscopy. These findings, together with the gross examination, support the pathologic diagnosis. GROSS DESCRIPTION: The specimen, labeled "GH, appendix," is received in formalin and consists of Specimen: Appendix with mesoappendix. Dimensions: 5.5 x 1.0 cm. Serosa: Johnson-red and hyperemic. Perforation: Not grossly identified. Inking: Staple line is inked blue. Mucosa: Johnson-white and edematous with focal areas of hemorrhage and softening. Fecalith: Not grossly identified. Additional: None. Crayon Grader sections are submitted in cassette (A1). AR (under the direct supervision of a pathologist) The Gross Description was prepared using a voice recognition system. The report was reviewed for accuracy; however, sound-alike word errors, addition and/or deletions may occur. If there is any question about this report, please contact Client Services. PERFORMING LABORATORY: The technical component was performed by [employer], [address] [place] [id number] (Cloud Operations Engineer: Carla Caballero MD; CLIA# [id number]). [facility], [address] [address] (Cloud Operations Engineer: Ronal Dalton MD; CLIA# PATIENT NAME: LILLY TORRES PATHOLOGY DATE OF : 58 REPORT #: [id number] PHYSICIAN: LUDMILA PATHOLOGY PCP: MANI ALMODOVAR DO REPORT IS CONFIDENTIAL AND NOT TO BE RELEASED WITHOUT AUTHORIZATION [facility] [address], [place] [address] Signed [id number]). Diagnostician: Brigitte Andrews MD Pathologist Electronically Signed 12/26/2018 Copies: ~ PATIENT NAME: LILLY TORRES PATHOLOGY DATE OF : 58 REPORT #: [id number] PHYSICIAN: LUDMILA PATHOLOGY PCP: MANI ALMODOVAR DO REPORT IS CONFIDENTIAL AND NOT TO BE RELEASED WITHOUT AUTHORIZATION
== END 2018-12-25 09:35 | disposition home or self-care (01) ==
LOC: ED 19:31 → MS 19:32
PROVIDERS: ADMIT Colon & Rectal Surgery
PROC: 0DTJ4ZZ Resection of Appendix, Percutaneous Endoscopic Approach (ICD-10-PCS; principal; 2018-12-23 09:44)
DX: K35.80 Unspecified acute appendicitis (principal); M06.9 Rheumatoid arthritis, unspecified; M79.7 Fibromyalgia; E03.9 Hypothyroidism, unspecified; F32.9 Major depressive disorder, single episode, unspecified; Z87.891 Personal history of nicotine dependence; Z79.899 Other long term (current) drug therapy; Z79.1 Long term (current) use of non-steroidal anti-inflammatories (NSAID); Z88.8 Allergy status to other drugs, medicaments and biological substances
CPT/HCPCS: 00840; 36415; 74176; 80053; 81001; 83690; 85025; 93005; 93010; 96361; 96372; 96374; 96375; 96376; 99285-25; G0378; J0131; J0330; J0696; J1100; J1170; J1200; J1644; J1885; J2250; J2405; J2704; J2710; J3475; J7030; J7120; J7121